=== PATIENT | female | born 1970 | race American Indian/Alaskan Native ===

== ENCOUNTER 2017-11-02 16:04 | Emergency (ER) | payer OTHER ==
[2017-11-02 16:04] VITALS: BMI 25.7
[2017-11-02 17:10] VITALS: RESP 18; TEMP 98.5
[2017-11-02] MEDS ORDERED: Tmp-Smz 800 mg-160 mg DS Tab PO STA (17:46)
--- NOTE | 2017-11-02 18:54 | ED PDOC ---
Arrival/HPI - General Chief Complaint: Finger,Hand,&Wrist Time Seen by Provider: 11/02/17 17:42 Historian: Patient - History of Present Illness Narrative History of Present Illness (Text): 11/02/17 19:54 47-year-old female presents today with pain and redness to the right second finger. Patient states about one week ago she sustained a paper cut to the right second finger. Patient states over the past week she's noticed some redness and some swelling forming around the area of the paperclip. She denies numbness weakness or tingling in the extremity. She denies limited range of motion of the finger. She denies fevers or chills. Patient denies any other complaints. No medicines have been taken at home for pain. Past Medical History - Provider Review Nursing Documentation Reviewed: Yes - Travel History Have you recently traveled outside [place] w/in the past 3 mons?: No - Tetanus Immunization Tetanus Immunization: Unknown - Reproductive Menopause: Yes - Psychiatric Hx Depression: No Hx Emotional Abuse: No Hx Physical Abuse: No Hx Substance Use: No - Surgical History Hx Section: Yes - Suicidal Assessment Feels Threatened In Home Enviroment: No Family/Social History - Physician Review Nursing Documentation Reviewed: Yes Family/Social History: Unknown Family HX Smoking Status: Former Smoker Hx Alcohol Use: Yes Frequency of alcohol use: Socially Hx Substance Use: No Allergies/Home Meds Allergies/Adverse Reactions: Allergies No Known Allergies Allergy (Verified 11/02/17 17:10) Review of Systems - Review of Systems Constitutional: absent: Fatigue, Fevers Respiratory: absent: SOB, Cough Cardiovascular: absent: Chest Pain, Palpitations Gastrointestinal: absent: Abdominal Pain, Nausea, Vomiting Genitourinary Female: absent: Dysuria Musculoskeletal: Arthralgias (Right second finger pain). absent: Back Pain, Neck Pain Skin: Skin Lesions, Cellulitis Neurological: absent: Headache, Dizziness Psychiatric: absent: Anxiety, Depression Physical Exam Vital Signs Reviewed: Yes Vital Signs Temp Pulse Resp BP Pulse Ox 11/02/17 17:08 98.5 F 79 18 136/68 99 Temperature: Afebrile Blood Pressure: Normal Pulse: Regular Respiratory Rate: Normal Appearance: Positive for: Well-Appearing, Non-Toxic, Comfortable Pain Distress: None Mental Status: Positive for: Alert and Oriented X 3 - Systems Exam Head: Present: Atraumatic Respiratory/Chest: Present: Clear to Auscultation Cardiovascular: Present: Regular Rate and Rhythm Upper Extremity: Present: Normal ROM, NORMAL PULSES, Tenderness (Right second finger: There is a small round area of erythema with a small blister type lesion noted centrally over the lateral aspect of the 2nd finger at the middle phalanx. There is full range of motion of the finger.), Erythema, Neurovascularly Intact, Capillary Refill < 2s. No: Swelling, Deformity Neurological: Present: GCS=15, Speech Normal Skin: Present: Warm, Dry Psychiatric: Present: Alert, Oriented x 3 Medical Decision Making ED Course and Treatment: 11/02/17 19:57 Patient nontoxic well-appearing in no distress with stable vital signs X-rays of the right second finger; no fracture, no fb bactrim and keflex given po I discussed all results with patient advised to followup with the orthopedist/ hand specialist within the next 2 days. Return if symptoms worsen persist or new symptoms develop. Advised immediate return if patient has worsening swelling or erythema or develops any difficulty with range of motion of the finger. Patient verbalizes understanding of discharge instructions and need for immediate followup. all aspects of this case were discussed the attending of record. Impression: cellulitis, skin lesion Motrin every 6 hours as needed for pain Keflex one capsule 4 times daily 7 days Bactrim 1 tablet twice daily 7 days Follow-up with a hand specialist within the next 2 days Return if symptoms worsen persist or if new symptoms develop: High fevers, increasing pain, increasing swelling, increasing redness, limited range of motion of the finger or if any other concerning symptoms develop - RAD Interpretation Radiology Orders: 11/02/17 17:42 HAND RIGHT 2ND DIGIT (FINGER) [RAD] Stat - Medication Orders Current Medication Orders: Discontinued Medications Cephalexin Monohydrate (Keflex) 500 mg PO STAT STA PRN Reason: Protocol Stop: 11/02/17 17:47 Last Admin: 11/02/17 17:59 Dose: 500 mg Trimethoprim/Sulfamethoxazole (Bactrim Ds Tab) 1 tab PO STAT STA PRN Reason: Protocol Stop: 11/02/17 17:47 Last Admin: 11/02/17 17:59 Dose: 1 tab Disposition/Present on Arrival - Present on Arrival Any Indicators Present on Arrival: No History of DVT/PE: No History of Uncontrolled Diabetes: No Urinary Catheter: No History of Decub. Ulcer: No History Surgical Site Infection Following: None - Disposition Have Diagnosis and Disposition been Completed?: Yes Diagnosis: Cellulitis, finger Disposition: HOME/ ROUTINE Disposition Time: 18:51 Patient Plan: Discharge Condition: GOOD Discharge Instructions (ExitCare): Cellulitis (ED) Additional Instructions: Motrin every 6 hours as needed for pain Keflex one capsule 4 times daily 7 days Bactrim 1 tablet twice daily 7 days Follow-up with a hand specialist within the next 2 days Return if symptoms worsen persist or if new symptoms develop: High fevers, increasing pain, increasing swelling, increasing redness, limited range of motion of the finger or if any other concerning symptoms develop Prescriptions: Cephalexin [Keflex] 500 mg PO QID #28 capsule Ibuprofen [Motrin] 600 mg PO Q6H PRN #20 tab PRN Reason: pain/fever reduction Sulfamethoxazole/Trimethoprim [Bactrim DS 800 mg-160 mg] 1 tab PO BID #14 tab Referrals: Cindy Lopez MD [Primary Care Provider] - Follow up with primary Fred Coley MD [Staff Provider] - Follow up with primary Zion Felipe MD [Staff Provider] - Follow up with primary Forms: [employer] (Bulgarian)
[2017-11-02 18:59] VITALS: BP 122/79; PULSE 72; O2SAT 99
--- NOTE | 2017-11-03 10:40 | RAD ---
Date of service: 11/02/2017 PROCEDURE: Right Index finger radiographs. HISTORY: r/o foreign body, pain COMPARISON: None. TECHNIQUE: AP radiograph of the right hand, as well as spot oblique and lateral images of index finger were obtained. FINDINGS: RIGHT INDEX FINGER: Normal right index finger, without acute fracture or focal lesion. Remainder of the right hand (as seen on the AP view) grossly intact. JOINTS: Normal. SOFT TISSUES: Normal. No radiopaque foreign body. OTHER FINDINGS: None. IMPRESSION: No acute fracture or dislocation. No radiopaque foreign body.
== END 2017-11-02 18:59 | disposition home or self-care (01) ==
LOC: ED 16:04
DX: L03.011 Cellulitis of right finger (principal)